=== PATIENT | female | born 1960 | race Hispanic/Latino ===

== ENCOUNTER 2018-04-06 18:58 | Emergency (ER) | payer OTHER ==
[2018-04-06] MEDS ORDERED: DEXAMETHASONE SOD PHOSPHATE 10MG/ML 1ML VIAL ONE (19:17)
== END 2018-04-06 20:30 | disposition home or self-care (01) ==
LOC: EDH 18:58
DX: R20.2 Paresthesia of skin (principal); E78.5 Hyperlipidemia, unspecified; Z98.890 Other specified postprocedural states
CPT/HCPCS: 96372; 99283; J1100